=== PATIENT | male | born 1985 ===

== ENCOUNTER 2021-02-06 14:36 | Outpatient (CLI) | payer SELFPAY | END 2021-02-06 14:37 | disposition home or self-care (01) | LOC: DI.CM 14:36 | PROVIDERS: Visit Provider Physician Assistant | DX: R69 Illness, unspecified (principal) ==

== ENCOUNTER 2021-02-06 15:17 | Emergency (ER) | payer SELFPAY ==
--- NOTE | 2021-02-06 15:30 | RT.EKG_ITS ---
APPROVED REPORT Exam: Resting ECG Reason for Exam: chest pain Patient Location: E HR:97 bpm ECG Measurements Heart Rate 97 AXIS MT 139 P 42 QRSd 82 QRS -20 QT 345 T 81 QTc 438 Conclusion Sinus rhythm...normal P axis, V-rate 60- 99 Consider left ventricular hypertrophy...(R aVL+S V3) >2.80mV ST elev, probable normal early repol pattern...ST elevation, age<55
[2021-02-06 15:47] VITALS: BP 184/126; PULSE 100; RESP 14; TEMP 37.1; O2SAT 97
--- NOTE | 2021-02-06 16:02 | ED.GENADUL_ITS ---
Discharge Plan Disposition Patient Disposition: HOME Condition: Stable Discharge Details Chief Complaint: PsychEval Clinical Impression: Chest pain, Depression Primary Care Provider: Unknown,Unknown ED Provider: Keyshawn Dean Home Meds and New Rx's Prescriptions: No Action No Known Home Meds RF: 0 Discharge Instructions Instructions: Hypertension (ED) Additional Instructions: your blood work and ekg did not show evidence of a heat attack your blood pressure was elevated, follow up with your primary care provider in 1-2 weeks if you feel more ill, have worsening pain or symptoms return to the emergency department Medical Decision Making 36 yo male who denies chronic medical problems 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 He apparently works for [employer] and normally is upbeat per the patient's electrical assemblies supervisor and today was more reserved and made statements of wanting to harm himself though no specific plan was voiced. He also complained of chest pain about 5 hours ago, went to [facility] and was referred here. He currently denies any pain and states the pain was an ache that lasted a few minutes in the left chest. Denies back pain, dyspnea, fevers, chills, cough, n/v. He denies abdominal pain. He states right now he has no SI/depression on my exam or HI. He is caox4. He is hypertensive otherwise stable vitals, no leg swelling, calf tenderness, abdominal tenderness, clear lungs, no murmurs, no jvd. EKG with early repol, will send troponin, heart score is 1. Wells low and perc negative so doubt PE and no tearing back pain and normal vascular exam so doubt dissection. If his workup is benign will have [facility] evaluate him. labs unremarkable and still no chest pain. Seen by mental health and given no si here cleared for discharge as he doesn't meet EE criteria which I agree with. He will follow up with his pcp and mental health, return precautions given Differential Diagnosis Differential Diagnosis: nstemi, chest wall pain, depression Lab Data Lab results reviewed: Yes I reviewed the patient's lab results. ECG Data Attestation: I personally reviewed and interpreted this ECG (s) as follows: Prior ECG tracings: not available for review Interpretation: sinus rhythm, rate of 97, no acute st t wave ischemic findings. HPI General Mode of arrival: ambulatory . Date/Time Provider Initiated Documentation: 02/06/21 15:54 . Limitations to Documentation: no limitations . Information obtained by: patient . History of Present Illness 36 year old M presents to the emergency department with the chief complaint of chest pain, described as moderate, Quality is described as aching, Patient started experiencing this hour(s) (4) and it has been now resolved. No relieving factors improve symptom(s), No exacerbating factors reported . Patient did receive the following treatments prior to arrival, none Related Data Home Medications Medication Instructions Recorded Confirmed Unknown [No Known Home Meds] 02/06/21 02/06/21 Allergies Allergy/AdvReac Type Severity Reaction Status Date / Time No Known Allergies Allergy Verified 02/06/21 15:53 General Stated Complaint: PsychEval FLORIN: 2 Review of Systems All systems reviewed & are unremarkable except as noted in HPI and below Constitutional Constitutional: Denies chills, Denies fever(s) and Denies weakness Cardiovascular Cardiovascular: Denies dyspnea Respiratory Respiratory: Denies cough and Denies dyspnea Gastrointestinal Gastrointestinal: Denies abdominal pain, Denies nausea and Denies vomiting Musculoskeletal Musculoskeletal: Denies joint swelling Neurologic Neurologic: Denies weakness [facility] Active Problem List (Updated 02/06/21 @ 18:54 by Keyshawn Dean MD) Chest pain (Acute) Depression (Chronic) Social History Smoking/Tobacco Use Status: Unknown Smoking risk assessment performed?: Yes Drug use: Never Do you feel safe at home: Yes Exam Const General: no acute distress Orientation: alert HENMT Head: normal to inspection Ears: external ears normal General nose exam: external nose normal Mouth: moist mucous membranes Eyes General: appearance normal, both eyes and all related structures Neck Neck: normal visual inspection Resp Effort & Inspection: normal respiratory effort and able to speak in complete sentences Cardio Rate: regular rate GI Palpation: soft Skin General skin exam: no rashes or lesions noted Neuro General: patient alert and patient oriented x3 Extrem General: normal to inspection Psych Appearance: well kempt Course Vital Signs Vital signs: Vital Signs Temperature 37.1 C 02/06/21 15:47 Pulse 100 H 02/06/21 15:47 Respiratory Rate 14 02/06/21 15:47 Blood Pressure 184/126 H 02/06/21 15:47 Pulse Oximetry 97 02/06/21 15:47 Temperature 37.1 C 02/06/21 15:47 Temperature Source Tympanic 02/06/21 15:47 Pulse 100 H 02/06/21 15:47 Respiratory Rate 14 02/06/21 15:47 Blood Pressure 184/126 H 02/06/21 15:47 Blood Pressure Position Sitting 02/06/21 15:47 Pulse Oximetry 97 02/06/21 15:47 Oxygen Delivery Method Room Air 02/06/21 15:47 Oxygen Flow Rate 0 02/06/21 15:47
[2021-02-06 16:45] LABS: Bilirubin Negative (Negative); Blood Negative (Negative); Clarity Clear (Clear); Glucose Negative (Negative); Ketones Negative (Negative); Leukocyte Esterase Negative (Negative); Nitrite Negative (Negative); Specific Gravity 1.025 (1.005-1.025); Urobilinogen 0.2 EU/dL (Up TO 0.2); pH 7.5 (5-8)
[2021-02-06 16:53] LABS: Bacteria Negative HPF (Negative); C & S Indicated? No; Casts Negative LPF (Negative); Crystals Negative HPF (Negative); Epithelial Cells Negative HPF (Negative); Mucus Trace (Negative); RBC Negative HPF (0-2); WBC 0-2 HPF (0-5)
[2021-02-06 17:12] LABS: Abs Immature Grans 0.05 10^3/uL (0.0-0.06); Absolute Basophil Count 0.02 10^3/uL (0.0-0.2); Absolute Lymphocyte Count 1.27 10^3/uL (1.2-3.4); Absolute Monocyte Count 0.53 10^3/uL (0.1-0.8); Absolute Neutrophil Count 9.99 10^3/uL (1.2-6.7); Basophils % 0.2; HCT 45.6 % (40.0-50.0); HGB 14.7 g/dL (13.5-17.5); Immature Grans % 0.4; Lymphocytes % 10.7; MCHC 32.2 % (32.0-36.0); MCV 86.9 fL (80-95); MPV 10.9 fL (8.0-11.0); Monocytes % 4.5; Neutrophils % 84.2; Nucleated RBC 0 %; Platelet Count 281 10^3/uL (130-400); RBC 5.25 10^6/uL (4.36-5.78); RDW 13.1 % (11.8-14.1); RDW-SD 41.3 fL; WBC 11.86 10^3/uL (4.4-10.8)
[2021-02-06 17:31] LABS: ALT 113 U/L (16-63); AST 65 U/L (15-37); Albumin 4.3 g/dL (3.4-5.0); Alkaline Phosphatase 65 U/L (46-116); Anion Gap 11.3 mmol/L (3-11); BUN 8 mg/dL (7-18); Bilirubin, Total 0.2 mg/dL (0.2-1.0); CO2 28.7 mmol/L (21.0-32.0); CREATININE 1.2 mg/dL (0.70-1.30); Calcium 9.5 mg/dL (8.5-10.1); Chloride 105 mmol/L (98-107); Glucose 109 mg/dL (74-106); Magnesium 2.1 mg/dL (1.8-2.4); Sodium 145 mmol/L (136-145); Total Protein 8.1 g/dL (6.4-8.2)
[2021-02-06 17:34] LABS: Troponin I < 0.05 ng/mL (<0.06)
[2021-02-06 17:36] LABS: *AMPHETAMINES SCREEN URINE Negative (Negative); *BARBITURATES SCREEN URINE Negative (Negative); *BENZODIAZEPINES SCREEN URINE Negative (Negative); Cannabinoids THC Negative (Negative); Cocaine Screen,Urine Negative (Negative); METHADONE URINE SCREEN Negative (Negative); OPIATES URINE SCREEN Negative (Negative); Tricyclic Antidepressants Negative (Negative)
== END 2021-02-06 19:15 | disposition home or self-care (01) ==
PROVIDERS: Emergency Provider Emergency Medicine
DX: R07.89 Other chest pain (principal); F32.9 Major depressive disorder, single episode, unspecified; R45.851 Suicidal ideations; R03.0 Elevated blood-pressure reading, without diagnosis of hypertension
CPT/HCPCS: 80053; 80307; 93005; 99283; 81003; 81015; 83735; 84484; 85025; 93010